=== PATIENT | male | born 2000 | race Two or more races ===

== ENCOUNTER 2023-10-28 15:39 | Emergency (ER) | payer OTHER ==
[~2023-10-28] VITALS: Ht 172.7 cm; Wt 111.1 kg
[2023-10-28] MEDS ORDERED: PEPCID AC20 MG PO (21:38)
[2023-10-28] MEDS ORDERED: TUSSIN DM LIQU118 ML PO (21:38)
[2023-10-28] MEDS ORDERED: VISTARIL25 MG PO ×2 (21:38→21:44)
== END 2023-10-28 21:55 | disposition home or self-care (01) ==
LOC: ER 15:39
DX: R09.89 Other specified symptoms and signs involving the circulatory and respiratory systems (principal); Z91.013 Allergy to seafood; Z87.09 Personal history of other diseases of the respiratory system; Z20.822 Contact with and (suspected) exposure to COVID-19

== ENCOUNTER 2025-05-17 06:59 | Emergency (ER) | payer OTHER ==
[~2025-05-17] VITALS: Ht 172.7 cm; Wt 108.9 kg
[~2025-05-17 06:59] MED LIST: PEPCID AC20 MG PO; TUSSIN DM LIQU118 ML PO; VISTARIL25 MG PO
[2025-05-17] MEDS ORDERED: MAG HYDROX/ALUMINUM HYD/SIMETH 30 ML BLIST.PACK PO ONE ×2 (08:45→08:57)
[2025-05-17] MEDS ORDERED: CEFTRIAXONE SODIUM 1,000 MG VIAL IM ONE (08:45)
[2025-05-17] MEDS ORDERED: LIDOCAINE HCL VISCOUS 20MG/ML BLIST 15ML MM ONE (08:45)
[2025-05-17] MEDS ORDERED: CEFTRIAXONE SODIUM 1,000 MG VIAL ONE (08:57)
[2025-05-17] MEDS ORDERED: KETOROLAC TROMETHAMINE 60 MG VIAL IM ONE ×2 (08:57→09:00)
[2025-05-17] MEDS ORDERED: AMOXICILLIN500 MG PO (09:01)
[2025-05-17 09:21] VITALS: BP 117/77; O2SAT 98
== END 2025-05-17 09:23 | disposition home or self-care (01) ==
LOC: ER 06:59
DX: J02.8 Acute pharyngitis due to other specified organisms (principal); B96.89 Other specified bacterial agents as the cause of diseases classified elsewhere; Z91.013 Allergy to seafood